=== PATIENT | male | born 1940 | race Caucasian/White ===

== ENCOUNTER 2022-10-07 10:45 | Emergency (ER) | payer MEDICARE, OTHER ==
--- NOTE | 2022-10-07 12:37 | ED Physician Documentation ---
PD HPI HEENT - Stated complaint Stated Complaint: MOUTH PX, SWELLING - Chief complaint Chief Complaint: Heent - History obtained from History obtained from: Patient, Family - Additional information Additional information: The patient comes to the emergency department with chief complaint of right- sided facial swelling and dental pain/infection. The patient states his right maxillary wisdom tooth has a distant root canal, and that he has not had any problems with it until approximately 5 days ago, when he began to notice pain around the area. The patient also had some swelling of the gingiva at that time. 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 He was able to be seen the next day by a dentist affiliated with and had extensive facial imaging including with CT scan, that did not show a specific fluid collection. The patient notes that there was noted to be some inflammatory change of the soft tissue around the area of the root canal, and it did appear that perhaps one of the wires had broken off at the tip. The patient was afebrile and told he could stay on the ciprofloxacin, but by the next day, had noticed that his symptoms seemed a little worse and so the dentist prescribed clindamycin instead. The patient had a total of approximately 2-1/2 days of ciprofloxacin and is now starting his third day of clindamycin. He st ates he noticed that the pain in the tooth was much improved yesterday and that he could even chew without pain. He also states he had a very good night of sleep last night and felt comfortable with ibuprofen and Tylenol. However, after getting up this morning, he noticed that his right face was a little puffier and that he had some pain in his zygomatic area and tenderness to the touch. He felt that the edema was more dependent and down by his mandible, but was just concerned that his face seem to have more pain and slightly more puffiness. The patient denies fevers or chills. He has not felt ill in any other way. He is visiting from [place] and just wanted to make sure that there is no progression of the infection. He is otherwise healthy. No other complaints at this time. PD PAST MEDICAL HISTORY - Past Medical History Past Medical History: No Cardiovascular: Hypertension, High cholesterol, Coronary artery disease - Past Surgical History Past Surgical History: Yes Cardiovascular: Coronary stent - Present Medications Home Medications: Ambulatory Orders Medication Instructions Recorded Confirmed Acetaminophen/Cod 300/30 [Tylenol 2 each PO Q4-6H PRN #10 tablet 10/07/22 #3] Aspirin [Vazalore] 81 mg PO DAILY 10/07/22 10/07/22 Atorvastatin Calcium [Lipitor] 80 mg PO DAILY 10/07/22 10/07/22 Clindamycin [Cleocin] 300 mg PO Q6H 10/07/22 10/07/22 Clopidogrel [Plavix] 75 mg PO DAILY 10/07/22 10/07/22 Icosapent Ethyl [Vascepa] 2 gm PO BID 10/07/22 10/07/22 Metoprolol Succinate [Toprol Xl] 50 mg PO DAILY 10/07/22 10/07/22 amLODIPine [Norvasc] 5 mg PO DAILY 10/07/22 10/07/22 - Allergies Allergies/Adverse Reactions: Allergies Allergy/AdvReac Type Severity Reaction Status Date / Time Penicillins Allergy Anaphylaxis Verified 10/07/22 10:54 - Social History Does the pt smoke?: No Smoking Status: Never smoker Does the pt drink ETOH?: Yes Does the pt have substance abuse?: No PD ED PE NORMAL - Vitals Vital signs reviewed: Yes - General General: Alert and oriented X 3 (Grossly), No acute distress, Well developed/nourished - HEENT HEENT: Atraumatic, PERRL, EOMI, Moist mucous membranes, Other (No right maxillary dental tenderness. Findings indicating distant dental work on the teeth but Dentition otherwise good. Mild tenderness and edema of maxillary sulcus and gingiva surrounding right maxillary third molar. ) - Cardiac Cardiac: RRR, No murmur - Respiratory Respiratory: Clear bilaterally - Abdomen Abdomen: Normal bowel sounds, Soft, Non tender, Non distended - Derm Derm: Normal color, Warm and dry, No rash, Other (No erythema, induration, or fluctuance of right face.) - Extremities Extremities: No deformity - Neuro Neuro: Alert and oriented X 3 - Psych Psych: Normal mood, Normal affect - Free text exam Free text exam: , fluctuance, or induration. Facial exam continued: Mild right facial edema mostly dependent around the angle and body of mandible, without induration, fluctuance, or erythema. Mild tenderness of mid lateral face along zygomatic/maxillary area. Results - Vitals Vitals: Vital Signs - 24 hr 10/07/22 10/07/22 10:48 13:01 Temperature 37.0 C 36.0 C L Heart Rate 66 65 Respiratory 20 18 Rate Blood Pressure 153/75 H 139/77 H O2 Saturation 100 95 Oxygen O2 Source Room air - Labs Labs: Laboratory Tests 10/07/22 12:47 WBC 6.9 RBC 4.38 L Hgb 13.6 L Hct 41.6 L MCV 95.0 H MCH 31.1 H MCHC 32.7 RDW 12.0 Plt Count 219 MPV 11.0 Neut # (Auto) 5.1 Lymph # (Auto) 1.0 L [place] # (Auto) 0.7 Eos # (Auto) 0.1 Baso # (Auto) 0.0 Absolute Nucleated RBC 0.00 Nucleated RBC % 0.0 PD Medical Decision Making - ED course Complexity details: reviewed results, re-evaluated patient, considered differential, d/w patient, d/w family ED course: I discussed with the patient that I do not find any evidence of cellulitis or abscess at this point in time. It also sounds like his CTs were reassuring a few days ago with the dentist. The patient does report improvement of the pain around his tooth, which is also reassuring. At this point, we will check a CBC to see if there is any white blood cell count elevation and also to establish a baseline, should there be any further concerns in the coming days. The patient CBC showed a normal white blood cell count at 6.9. His H&H were found to be 13.6 and 41.6. At this point in time, the patient like to continue clindamycin for a few more days and see if he continues to improve. We have discussed the usual indications for follow-up and return. Departure - Departure Disposition: 01 Home, Self Care Clinical Impression: Dental infection Condition: Stable Instructions: ED Abscess Dental Follow-Up: Jose Michelle DDS [Provider Admit Priv/Credential] - Prescriptions: Acetaminophen/Cod 300/30 [Tylenol #3] 2 each PO Q4-6H PRN #10 tablet PRN Reason: pain Comments: Your white blood cell count today is 6.9. You do have some swelling of the face but there is no palpable abscess or induration, and no redness to indicate a facial cellulitis at this time. Hopefully, the pain and swelling is just residual and will turn around with a few more days of antibiotics. You have opted to continue the clindamycin for now which is reasonable. If you begin to notice steadily worsening swelling of your face, especially with redness, firmness, and bulging of the tissue, or development of fever, you should be reevaluated. A prescription for Tylenol 3 has been electronically transmitted to the [facility] in [place] your request. If you have further concerns, you may follow-up with the dentist you saw through , or you may also call her local oral surgeons office if you feel that there is a greater concern that needs more than a general dentist opinion. Otherwise, please complete the course of antibiotics as directed. Forms: PCP List Discharge Date/Time: 10/07/22 13:35
[2022-10-07 12:55] LABS: BASOPHILS % (AUTO) 0.4 %; EOSINOPHILS # (AUTO) 0.1 10^3/uL (0.0-0.7); EOSINOPHILS % (AUTO) 1.4 %; HCT - HEMATOCRIT 41.6 % (42.0-52.0); HGB - HEMOGLOBIN 13.6 g/dL (14.0-18.0); LYMPHOCYTES % (AUTO) 14.3 %; MEAN CORPUSCULAR HEMOGLOBIN 31.1 pg (27.0-31.0); MEAN CORPUSCULAR HGB CONC 32.7 g/dL (32.0-36.0); MONOCYTES # (AUTO) 0.7 10^3/uL (0.0-1.0); MONOCYTES % (AUTO) 10.4 %; NEUTROPHILS # (AUTO) 5.1 10^3/uL (1.5-6.6); NEUTROPHILS % (AUTO) 73.4 %; PLT - PLATELET COUNT 219 10^3/uL (130-450); RED BLOOD COUNT 4.38 10^6/uL (4.70-6.10); WHITE BLOOD COUNT 6.9 x10^3/uL (4.8-10.8)
[2022-10-07 13:07] VITALS: BP 139/77
== END 2022-10-07 13:35 | disposition home or self-care (01) ==
LOC: ED 10:45
DX: K02.9 Dental caries, unspecified (principal)
CPT/HCPCS: 36415; 85025; 99283